=== PATIENT | male | born 1975 ===

== ENCOUNTER 2016-06-11 04:45 | Emergency (ER) | payer SELFPAY ==
[2016-06-11] MEDS ORDERED: Sodium Chloride 0.9% 500 ML IV ONE ×2 (05:13→05:34)
--- NOTE | 2016-06-11 05:13 | C.PDOC ---
History Of Present Illness 40 year old patient presents to the ED complaining of a frontal headache and epigastric pain that began a few hours prior to arrival. Patient has associated symptoms of nausea and vomiting. He notes 1 episode of vomiting. Patient denies photophobia, fever, diarrhea, UTI symptoms, or URI symptoms. Time Seen by Provider: 06/11/16 05:03 Chief Complaint (Nursing): Headache History Per: Patient History/Exam Limitations: no limitations Onset/Duration Of Symptoms: Hrs (few hours prior to arrival) Current Symptoms Are (Timing): Still Present Severity: Mild Pain Scale Rating Of: 3 Quality: "Pain" Preceeding Symptoms: None Associated Symptoms: Nausea, Vomiting Recent travel outside of the [place]: No Past Medical History Reviewed: Historical Data, Nursing Documentation, Vital Signs Vital Signs: Last Vital Signs Temp 98 F 06/11/16 06:27 Pulse 63 06/11/16 06:27 Resp 17 06/11/16 06:27 BP 141/98 H 06/11/16 06:27 Pulse Ox 98 06/11/16 06:51 Family History: States: Unknown Family Hx - Social History Hx Alcohol Use: Yes Hx Substance Use: No - Immunization History Hx Tetanus Toxoid Vaccination: No Hx Influenza Vaccination: No Hx Pneumococcal Vaccination: No Review Of Systems Except As Marked, All Systems Reviewed And Found Negative. Constitutional: Negative for: Fever Respiratory: Negative for: Cough, Shortness of Breath Gastrointestinal: Positive for: Nausea, Vomiting, Abdominal Pain (epigastric). Negative for: Diarrhea Genitourinary: Negative for: Dysuria, Hematuria Neurological: Positive for: Headache Physical Exam - Physical Exam Appears: Non-toxic, No Acute Distress Skin: Warm, Dry Head: Atraumatic, Normacephalic Eye(s): bilateral: Normal Inspection, PERRL, EOMI Ear(s): Bilateral: Normal Nose: Normal Oral Mucosa: Moist Throat: Normal Neck: Normal ROM, Supple Chest: Symmetrical Cardiovascular: Rhythm Regular Respiratory: Normal Breath Sounds, No Rales, No Rhonchi, No Wheezing Gastrointestinal/Abdominal: Soft, Tenderness ((+)epigastric (-)RLQ), No Guarding , No Rebound Back: No CVA Tenderness Extremity: Normal ROM Neurological/Psych: Oriented x3, Normal Speech, Normal Cognition Gait: Steady ED Course And Treatment - Laboratory Results Result Diagrams: 06/11/16 05:23 06/11/16 05:23 Lab Interpretation: No Acute Changes O2 Sat by Pulse Oximetry: 98 (RA) Pulse Ox Interpretation: Normal Progress Note: Plan: -Labs. -IV fluids, Pepcid, Reglan Reevaluation Time: 06:52 Reassessment Condition: Improved (Pt reports feeling much better, no longer nauseous, no abd pain or headache. Pt is requesting to leave. Rx given and pt was advised to [facility] for BP management and reevaluation) Disposition - Disposition Referrals: [facility] [Outside] Disposition Time: 06:47 Condition: STABLE Additional Instructions: Please follow in clinic Take meds as directed Return to ER if worse Prescriptions: Acetaminophen/Butalbital/Caf [Fioricet] 1 tab PO TID PRN #20 tab PRN Reason: Headache Famotidine [Pepcid] 20 mg PO DAILY #20 tab Instructions: Acute Headache (ED), Epigastric Pain (ED) Print Language: SINHALA - Clinical Impression Clinical Impression: Headache, Epigastric abdominal pain - PA / COMMERCIAL PHOTOGRAPHER / Resident Statement MD/DO has reviewed & agrees with the documentation as recorded. - Scribe Statement The provider has reviewed the documentation as recorded by the Scribe Purnima Garduno All medical record entries made by the Scribe were at my direction and personally dictated by me. I have reviewed the chart and agree that the record accurately reflects my personal performance of the history, physical exam, medical decision making, and the department course for this patient. I have also personally directed, reviewed, and agree with the discharge instructions and disposition.
[2016-06-11] MEDS ORDERED: Sodium Chloride 0.9% 0 ML ONE (05:19)
[2016-06-11 05:39] LABS: BASO # 0.1 K/uL (0.0-0.2); EOS # 0.9 K/uL (0.0-0.7); EOS % 7.7 % (0.0-4.0); HEMATOCRIT 45.8 % (35.0-51.0); LYMPH # 3.2 K/uL (1.0-4.3); MEAN CELL VOLUME 88.5 fL (80.0-94.0); MEAN CORPUSCULAR HEMOGLOBIN 29.4 pg (27.0-31.0); MEAN CORPUSCULAR HGB CONC 33.2 g/dL (33.0-37.0); MEAN PLATELET VOLUME 8.3 fL (7.2-11.7); MONO # 0.8 K/uL (0.0-0.8); MONO % 6.5 % (0.0-10.0); NRBC % 0.1 % (0.0-2.0); RED CELL DISTRIBUTION WIDTH 12.6 % (11.5-14.5); WHITE BLOOD COUNT 12.2 K/uL (4.8-10.8)
[2016-06-11 05:47] LABS: CHLORIDE 100 mmol/L (98-107); POTASSIUM 3.5 mmol/L (3.6-5.2); SODIUM 140 mmol/L (132-148)
[2016-06-11 05:49] LABS: AST/SGOT 28 U/L (17-59); BILIRUBIN,TOTAL 0.8 mg/dL (0.2-1.3); CARBON DIOXIDE 23 mmol/L (22-30); GFR AFRICAN-AMERICAN > 60
[2016-06-11 05:50] LABS: ALB/GLOB RATIO 1.4 (1.0-2.1); ALKALINE PHOSPHATASE 51 U/L (38-126); ALT/SGPT 67 U/L (21-72); BLOOD UREA NITROGEN 10 mg/dL (9-20); CALCIUM 9.1 mg/dl (8.6-10.4); GLUCOSE,RANDOM 163 mg/dL (75-110); TOTAL PROTEIN 7.7 g/dL (6.3-8.3)
[2016-06-11 06:23] LABS: RBC URINE < 1 /hpf (0-3); URINE BILIRUBIN NEGATIVE (NEGATIVE); URINE BLOOD NEGATIVE (NEGATIVE); URINE COLOR Straw (YELLOW); URINE GLUCOSE (UA) 1+ mg/dL (Normal); URINE KETONE NEGATIVE (NEGATIVE); URINE LEUKOCYTE ESTERASE NEG Leu/uL (Negative); URINE PROTEIN NEGATIVE (NEGATIVE); URINE UROBILINOGEN NORMAL mg/dL (0.2-1.0); WBC URINE < 1 /hpf (0-5)
[2016-06-11 06:29] VITALS: BP 141/98; PULSE 63; RESP 17; TEMP 98; O2SAT 98
== END 2016-06-11 06:59 | disposition home or self-care (01) ==
LOC: C.ER 04:45
DX: R51 Headache (principal); R10.13 Epigastric pain
CPT/HCPCS: 80053; 81001; 83690; 85025; 96374; 96375; 99285; J2765; J7040